=== PATIENT | male | born 2000 | race Caucasian/White ===

== ENCOUNTER 2023-03-16 07:02 | Day surgery (SDC) | payer MEDICAID ==
[~2023-03-16] VITALS: Ht 172.7 cm; Wt 75.7 kg
[2023-03-16 07:53] VITALS: O2SAT 99
[2023-03-16] MEDS ORDERED: ROCURONIUM BROMIDE 10 MG/ML (ZEMURON) ONE (10:15)
[2023-03-16] MEDS ORDERED: LIDOCAINE/EPI 1% 1:100000 20 ML VIAL ONE (10:15)
[2023-03-16] MEDS ORDERED: BACITRACIN ZINC 15 GM TOPICAL OINTMENT TP ONE (10:15)
[2023-03-16] MEDS ORDERED: PROPOFOL 200MG/ 20ML VIAL (DIPRIVAN) IV ONE (10:15)
[2023-03-16] MEDS ORDERED: OXYMETAZOLINE HCL 0.05% NASAL SPRAY NS ONE (10:15)
[2023-03-16] MEDS ORDERED: ONDANSETRON HCL 4 MG/2 ML VIAL ONE (10:15)
[2023-03-16] MEDS ORDERED: MEPERIDINE 50 MG/ML VIAL ONE (10:15)
[2023-03-16] MEDS ORDERED: DEXAMETHASONE SOD PHOSPHATE 4 MG/ML VIAL ONE (10:15)
[2023-03-16] MEDS ORDERED: NS IRRIG SOLN 1000 ML IR ONE (10:15)
[2023-03-16] MEDS ORDERED: fentaNYL CITRATE/PF 100 MCG/2 ML AMP ONE (10:15)
[2023-03-16] MEDS ORDERED: LR 1,000 ML IV.SOLN IV ONE (10:15)
[2023-03-16] MEDS ORDERED: SUCCINYLCHOLINE CHLORIDE 20 MG/ML(QUELICIN) ONE (10:15)
[2023-03-16] MEDS ORDERED: SEVOFLURANE 15 MIN GAS INH ONE (10:15)
[2023-03-16] MEDS ORDERED: ONDANSETRON HCL 4 MG/2 ML VIAL IVP PRN ×2 (11:00→12:45)
[2023-03-16] MEDS ORDERED: HYDROmorphone 1 MG/ML INJ. CARTRIDGE IVP PRN (11:00)
[2023-03-16] MEDS ORDERED: METOCLOPRAMIDE HCL 10 MG/2 ML VIAL IVP PRN (11:00)
[2023-03-16] MEDS ORDERED: LR 1,000 ML IV SCH (11:00)
[2023-03-16] MEDS ORDERED: MEPERIDINE HCL/PF 25 MG/ML DISP.SYRIN IVP PRN (11:00)
[2023-03-16] MEDS ORDERED: HYDROcodone/ACETAMIN 5-325 MG TAB (NORCO/ VICODIN) PO PRN (12:45)
[2023-03-16] MEDS ORDERED: ONDANSETRON 4 MG ODT TAB PO PRN (12:45)
[2023-03-16 14:47] VITALS: BP_SYST 128; PULSE 83; RESP 16
== END 2023-03-16 14:30 | disposition home or self-care (01) ==
LOC: SDS 07:02 → SMU 07:03 → SDS 14:30
PROVIDERS: ATTEND Otolaryngology
DX: J34.2 Deviated nasal septum (principal); J34.3 Hypertrophy of nasal turbinates; J31.0 Chronic rhinitis
CPT/HCPCS: 87081; 30520; 30140; 88304; 88311; J1100; J2405; J2704; J0330; J3010; J2175; J7120; 88305